=== PATIENT | male | born 1960 | race Caucasian/White ===

== ENCOUNTER 2016-07-13 11:00 | Inpatient (IN) | payer BC ==
[2016-07-13 12:23] VITALS: BMI 26.6
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
[2016-07-13] MEDS ORDERED: MAGNESIUM CITRATE 300 ML BOTTLE PO PRN (20:53)
[2016-07-13] MEDS ORDERED: MENTHOL/PHENOL 1 EACH UD MM PRN (20:53)
[2016-07-13] MEDS ORDERED: MAGNESIUM HYDROX 2400MG/30ML ORAL SUSPENSION 30 ML CUP PO PRN (20:53)
[2016-07-13] MEDS ORDERED: LOPERAMIDE HCL 2 MG CAPSULE PO PRN (20:53)
[2016-07-13] MEDS ORDERED: P-EPHED 60MG/TRIPROLIDI 2.5MG TABLET PO PRN (20:53)
[2016-07-13] MEDS ORDERED: MAG HYDROX/AL HYDROX/SIMETH 30 ML UNIT-DOSE CUP PO PRN (20:53)
[2016-07-13] MEDS ORDERED: NICOTINE POLACRILEX 4 MG GUM BC PRN (20:53)
[2016-07-13] MEDS ORDERED: chlordiazePOXIDE HCL 25 MG CAPSULE PO PRN (20:53)
[2016-07-13] MEDS ORDERED: ACETAMINOPHEN 325 MG TABLET (FP) PO PRN (20:53)
[2016-07-13] MEDS ORDERED: guaiFENesin/D-METHORPHAN HB 10 ML UNIT-DOSE CUPS PO PRN (20:53)
[2016-07-13] MEDS ORDERED: BACITRACIN 0.9 GM PACKET TP ONE (20:57)
[2016-07-13] MEDS: THIAMINE HCL 100 MG TABLET (FP) PO SCH (21:49)
[2016-07-13] MEDS: CLOTRIMAZOLE 1% CREAM 15 GM TUBE TP SCH (22:59)
[2016-07-13] MEDS: OXcarbazepine 150 MG TABLET (UD) PO SCH (22:59)
[2016-07-13] MEDS: chlordiazePOXIDE HCL 25 MG CAPSULE PO SCH (23:00)
[2016-07-14] MEDS: chlordiazePOXIDE HCL 25 MG CAPSULE PO SCH ×4 (05:37→23:02)
--- NOTE | 2016-07-14 09:57 | CONSULT ---
[facility] Psychiatric Consult - Data Date of interview: 07/14/16 Admission source: [facility] Identifying data: This is 55 years vold male with no psychiatric hospitalization history intoxicated with: Xanax and Nicotine, mmtp 120/day Substance Abuse History: - Smoking Cessation. Smoking history: Current every day smoker. Have you smoked in the past 12 months: Yes. Aproximately how many cigarettes per day: 20. Cigars Per Day: 0. Hx Chewing Tobacco Use: No. Initiated information on smoking cessation: Yes. 'Breaking Loose' booklet given : 07/13/16. - Substance & Tx. History. Hx Alcohol Use: No. Hx Substance Use: Yes. Substance Use Type: Cocaine, Opiates. Hx Substance Use Treatment: Yes. - Substances Abused. Alcohol. Route: Oral. Frequency: 3-6 times per week. Amount used: 2x 6 pack beer. Age of first use: 13. Date of Last Use: . Alprazolam (Xanax). Route: Oral. Frequency: 1-2 times per week. Amount used: 2mg. Age of first use: 13. Date of Last Use: 07/13/16. Benzodiazepine (Klonopin). Route: Oral. Frequency: Daily. Amount used: 16 mg. Age of first use: 13. Date of Last Use: 07/13/16 Medical History: DM, Seizure history, LBP, MMTP 120MG/DAY, HYGHEST DOSE-200MG/ DAY Psychiatric History: Patient reports to carry Bipolar Disorder, reports taking prior to admission: Risperdal 2mg po qhs. Elavil 25mg po qhs Physical/Sexual Abuse/Trauma History: Denies Additional Comment: Risperdal 2mg po qhs. Elavil 25mg po qhs Mental Status Exam - Mental Status Exam Alert and Oriented to: Person Cognitive Function: Fair Patient Appearance: Unkempt Mood: Sad Affect: Flat Patient Behavior: Sedated Speech Pattern: Delayed Voice Loudness: Mildly Soft/Quiet Thought Process: Circumstantial Thought Disorder: Being Controlled Hallucinations: Denies Suicidal Ideation: Denies Homicidal Ideation: Denies Insight/Judgement: Fair Sleep: Difficulty falling asleep Appetite: Weight loss Muscle strength/Tone: Mild Hypotonicity Gait/Station: Shuffling Additional Comments: Risperdal 2mg po qhs. Elavil 25mg po qhs Psychiatric Findings - Problem List ([place] 1, 2,3) (1) Methadone maintenance therapy patient Current Visit: Yes Status: Acute Comment: 120 MG VERIFICAITON PENDING (2) Nicotine dependence Current Visit: Yes Status: Acute Qualifiers: Nicotine product type: cigarettes Substance use status: in withdrawal Qualified Code(s): F17.213 - Nicotine dependence, cigarettes, with withdrawal (3) Sedative, hypnotic or anxiolytic dependence with withdrawal, uncomplicated Current Visit: Yes Status: Acute (4) Bipolar II disorder Current Visit: Yes Status: Suspected (5) Cocaine dependence Current Visit: No Status: Acute (6) Sedative dependence Current Visit: No Status: Acute (7) Benzodiazepine dependence Current Visit: No Status: Chronic (8) Bipolar 1 disorder, depressed Current Visit: No Status: Chronic (9) Opioid dependence on agonist therapy Current Visit: No Status: Chronic (10) Substance or medication-induced sleep disorder, insomnia type Current Visit: No Status: Chronic (11) Xanax use disorder, moderate Current Visit: No Status: Chronic (12) Schizoaffective disorder, bipolar type Current Visit: Yes Status: Suspected - Initial Treatment Plan Initial Treatment Plan: Risperdal 2mg po qhs. Elavil 25mg po qhs
[2016-07-14 09:58] LABS: MCH 29.3 pg (25.7-33.7); MCHC 32.4 g/dl (32.0-35.9); MEAN CELL VOLUME 90.4 fl (80-96); MEAN PLT VOLUME 9.1 fl (7.5-11.1); PLATELET COUNT 240 K/MM3 (134-434); RDW 12.8 % (11.9-15.9); WHITE BLOOD COUNT 11.1 K/mm3 (4.0-10.0)
[2016-07-14 10:43] LABS: ALBUMIN 2.9 g/dl (3.4-5.0); BILIRUBIN,TOTAL 0.2 mg/dL (0.2-1.0); CALCIUM 8.4 mg/dL (8.5-10.1); TOT PROT 6.1 g/dl (6.4-8.2)
--- NOTE | 2016-07-14 10:56 | PN ---
S CIWA - CIWA Score Nausea/Vomitin-No Nausea/No Vomiting Muscle Tremors: 4-Moderate,w/Arms Extend Anxiety: 4-Mod. Anxious/Guarded Agitation: 4-Moderately Restless Paroxysmal Sweats: 1-Minimal Palms Moist Orientation: 0-Oriented Tacttile Disturbances: 3-Moderate Itch/Numb/Burn Auditory Disturbances: 0-None Visual Disturbances: 0-None Headache: 0-None Present CIWA-Ar Total Score: 16 BHS Progress Note (SOAP) Subjective: TREMORS,CHILLS,ANXIETY, SWELLING AND BLISTERS ON FEET STATING WALKING ON THE STREETS FOR 3 WEEKS.. Objective: 07/14/16 10:57 Vital Signs 07/14/16 07/14/16 07/14/16 03:53 06:48 10:03 Temperature 98.8 F 97.6 F Pulse Rate 109 H 114 H Respiratory 18 18 18 Rate Blood Pressure 136/85 141/75 Assessment: 07/14/16 10:58 WITHDRAWAL SX Plan: CONTINUE DETOX WARM BETADINE SOLUTION FOOT SOAKS BACITRACIN OINTMENT AND WRAP FEET WITH GUAZE BANDAGE DIRECTED.
[2016-07-14] MEDS: GLIMEPIRIDE 1 MG TABLET (FP) PO SCH (11:17)
[2016-07-14] MEDS: PRENATAL VITAMINS W/ FOLIC ACID TABLET (FP) PO SCH (11:17)
[2016-07-14] MEDS: METHADONE HCL 40 MG DISPERSABLE TABLET PO SCH (11:17)
[2016-07-14] MEDS: NICOTINE 21 MG/24 HOURS TOPICAL PATCH TD SCH (11:18)
[2016-07-14] MEDS: OXcarbazepine 150 MG TABLET (UD) PO SCH (11:18)
[2016-07-14] MEDS: CLOTRIMAZOLE 1% CREAM 15 GM TUBE TP SCH ×2 (11:18→23:08)
[2016-07-14] MEDS ORDERED: PNEUMOC 13-VAL CONJ-DIP CRM/PF 0.5 ML DISP.SYRIN IM ONE (12:00)
[2016-07-14] MEDS ORDERED: PNEUMOCOCCAL 23 VACCINE 0.5 ML VIAL IM ONE (14:15)
[2016-07-14] MEDS: BACITRACIN 30 GM TUBE TOPICAL OINTMENT TP SCH ×2 (14:31→23:05)
[2016-07-14] MEDS: OXcarbazepine 300 MG TABLET (UD) PO SCH ×2 (14:31→23:09)
[2016-07-14] MEDS ORDERED: diphenhydrAMINE HCL 25 MG CAPSULE (FP) PO PRN (14:40)
--- NOTE | 2016-07-14 15:05 | EKG ---
Test Reason : Blood Pressure : / mmHG Vent. Rate : 073 BPM Atrial Rate : 073 BPM P-R Int : 156 ms QRS Dur : 096 ms QT Int : 400 ms P-R-T Axes : 065 068 041 degrees QTc Int : 440 ms NORMAL SINUS RHYTHM NORMAL ECG NO PREVIOUS ECGS AVAILABLE Confirmed by PATI ECHEVARRIA MD ([id number]) on 07/14/2016 3:05:26 PM Referred By: Confirmed By:PATI ECHEVARRIA MD
[2016-07-14] MEDS: THIAMINE HCL 100 MG TABLET (FP) PO SCH (23:02)
[2016-07-14] MEDS: AMITRIPTYLINE HCL 25 MG TABLET (FP) PO SCH (23:02)
[2016-07-14] MEDS: IBUPROFEN 400 MG TABLET (FP) PO PRN (23:03)
[2016-07-14] MEDS: risperiDONE 2 MG TABLET PO SCH (23:09)
[2016-07-15] MEDS: METHADONE HCL 40 MG DISPERSABLE TABLET PO SCH (06:20)
[2016-07-15] MEDS: chlordiazePOXIDE HCL 25 MG CAPSULE PO SCH ×3 (06:20→17:22)
[2016-07-15] MEDS: GLIMEPIRIDE 1 MG TABLET (FP) PO SCH (06:32)
[2016-07-15] MEDS: PRENATAL VITAMINS W/ FOLIC ACID TABLET (FP) PO SCH (10:29)
[2016-07-15] MEDS: BACITRACIN 30 GM TUBE TOPICAL OINTMENT TP SCH ×2 (10:30→22:31)
[2016-07-15] MEDS: NICOTINE 21 MG/24 HOURS TOPICAL PATCH TD SCH (10:31)
[2016-07-15] MEDS: CLOTRIMAZOLE 1% CREAM 15 GM TUBE TP SCH ×2 (10:31→23:25)
[2016-07-15] MEDS: OXcarbazepine 300 MG TABLET (UD) PO SCH ×2 (10:31→22:31)
--- NOTE | 2016-07-15 11:03 | PN ---
[facility] CIWA - CIWA Score Nausea/Vomitin-No Nausea/No Vomiting Muscle Tremors: 4-Moderate,w/Arms Extend Anxiety: 4-Mod. Anxious/Guarded Agitation: 4-Moderately Restless Paroxysmal Sweats: 1-Minimal Palms Moist Orientation: 0-Oriented Tacttile Disturbances: 3-Moderate Itch/Numb/Burn Auditory Disturbances: 0-None Visual Disturbances: 0-None Headache: 0-None Present CIWA-Ar Total Score: 16 S Progress Note (SOAP) Subjective: ANXIETY,TREMORS,SWEATS,FATIGUE, INTERMITTENT SLEEP Objective: 07/15/16 10:58 Vital Signs Temperature 95.0 F L 07/15/16 10:48 Pulse Rate 83 07/15/16 10:48 Respiratory Rate 20 07/15/16 10:48 Blood Pressure 81/54 07/15/16 10:48 O2 Sat by Pulse Oximetry (%) Laboratory Last Values WBC 11.1 K/mm3 (4.0-10.0) H 07/14/16 06:10 RBC 3.26 M/mm3 (4.00-5.60) L 07/14/16 06:10 Hgb 9.6 GM/dL (11.7-16.9) L 07/14/16 06:10 Hct 29.5 % (35.4-49) L 07/14/16 06:10 MCV 90.4 fl (80-96) 07/14/16 06:10 MCHC 32.4 g/dl (32.0-35.9) 07/14/16 06:10 RDW 12.8 % (11.9-15.9) 07/14/16 06:10 Plt Count 240 K/MM3 (134-434) 07/14/16 06:10 MPV 9.1 fl (7.5-11.1) D 07/14/16 06:10 Sodium 142 mmol/L (136-145) 07/14/16 06:10 Potassium 4.2 mmol/L (3.5-5.1) 07/14/16 06:10 Chloride 108 mmol/L (98-107) H 07/14/16 06:10 Carbon Dioxide 25 mmol/L (21-32) 07/14/16 06:10 Anion Gap 9 (8-16) 07/14/16 06:10 BUN 30 mg/dL (7-18) H 07/14/16 06:10 Creatinine 2.0 mg/dL (0.7-1.3) H 07/14/16 06:10 Creat Clearance w eGFR 34.74 (>60) 07/14/16 06:10 POC Glucometer 123 UNITS (()) 07/15/16 06:18 Random Glucose 105 mg/dL (74-106) 07/14/16 06:10 Calcium 8.4 mg/dL (8.5-10.1) L 07/14/16 06:10 Total Bilirubin 0.2 mg/dL (0.2-1.0) 07/14/16 06:10 AST 26 U/L (15-37) 07/14/16 06:10 ALT 33 U/L (12-78) 07/14/16 06:10 Alkaline Phosphatase 79 U/L (45-117) 07/14/16 06:10 Total Protein 6.1 g/dl (6.4-8.2) L 07/14/16 06:10 Albumin 2.9 g/dl (3.4-5.0) L 07/14/16 06:10 RPR Titer Nonreactive (NONREACTIVE) 07/14/16 06:10 LABS NOTED Assessment: 07/15/16 10:59 WITHDRAWAL SX ANEMIA, UNKNOWN ORIGIN. Plan: CONTINUE DETOX FEOSOL DIRECTED F/U WITH PMD AFTER DETOX
[2016-07-15] MEDS: FERROUS SO4 325 MG TABLET (FP) PO SCH ×2 (12:22→17:22)
[2016-07-15] MEDS: IBUPROFEN 400 MG TABLET (FP) PO PRN (13:06)
[2016-07-15 16:24] LABS: URINE APPEARANCE CLEAR; URINE BILIRUBIN NEGATIVE (NEGATIVE); URINE BLOOD NEGATIVE (NEGATIVE); URINE COLOR LTYELLOW; URINE GLUCOSE (UA) NEGATIVE (NEGATIVE); URINE KETONE NEGATIVE (NEGATIVE); URINE NITRITE NEGATIVE (NEGATIVE); URINE PROTEIN NEGATIVE (NEGATIVE); URINE UROBILINOGEN NEGATIVE E.U./dl (0.2-1.0)
[2016-07-15 16:30] LABS: URINE LEUK ESTERASE TRACE (NEGATIVE)
[2016-07-15 16:38] LABS: GRANULAR CASTS 4 /lpf; URINE MUCUS RARE; URINE RBC <1 /hpf (0-3); URINE WBC 1 /hpf (3-5)
[2016-07-15] MEDS ORDERED: BACITRACIN 0.9 GM PACKET ONE (21:16)
[2016-07-15] MEDS: risperiDONE 2 MG TABLET PO SCH (22:30)
[2016-07-15] MEDS: THIAMINE HCL 100 MG TABLET (FP) PO SCH (22:30)
[2016-07-15] MEDS: AMITRIPTYLINE HCL 25 MG TABLET (FP) PO SCH (22:30)
[2016-07-15] MEDS: diphenhydrAMINE HCL 50 MG CAPSULE PO PRN (22:31)
[2016-07-15] MEDS: chlordiazePOXIDE 5 MG CAPSULE PO SCH (23:34)
[2016-07-16] MEDS: chlordiazePOXIDE 5 MG CAPSULE PO SCH ×3 (05:49→17:35)
[2016-07-16] MEDS: METHADONE HCL 40 MG DISPERSABLE TABLET PO SCH (05:49)
[2016-07-16] MEDS: GLIMEPIRIDE 1 MG TABLET (FP) PO SCH (07:44)
[2016-07-16] MEDS: FERROUS SO4 325 MG TABLET (FP) PO SCH ×3 (07:44→17:35)
[2016-07-16] MEDS: PRENATAL VITAMINS W/ FOLIC ACID TABLET (FP) PO SCH (10:30)
[2016-07-16] MEDS: BACITRACIN 30 GM TUBE TOPICAL OINTMENT TP SCH ×2 (10:31→22:38)
[2016-07-16] MEDS: CLOTRIMAZOLE 1% CREAM 15 GM TUBE TP SCH ×2 (10:31→22:42)
[2016-07-16] MEDS: NICOTINE 21 MG/24 HOURS TOPICAL PATCH TD SCH (10:32)
[2016-07-16] MEDS: OXcarbazepine 300 MG TABLET (UD) PO SCH ×2 (10:32→22:38)
--- NOTE | 2016-07-16 11:54 | PN ---
[facility] Progress Note (SOAP) Subjective: Restlessness, anxiety, diarrhea, interrupted sleep, chills Objective: Vital Signs Temperature 96.8 F L 07/16/16 10:06 Pulse Rate 92 H 07/16/16 10:06 Respiratory Rate 18 07/16/16 10:06 Blood Pressure 101/55 07/16/16 10:06 O2 Sat by Pulse Oximetry (%) Laboratory Last Values WBC 11.1 K/mm3 (4.0-10.0) H 07/14/16 06:10 RBC 3.26 M/mm3 (4.00-5.60) L 07/14/16 06:10 Hgb 9.6 GM/dL (11.7-16.9) L 07/14/16 06:10 Hct 29.5 % (35.4-49) L 07/14/16 06:10 MCV 90.4 fl (80-96) 07/14/16 06:10 MCHC 32.4 g/dl (32.0-35.9) 07/14/16 06:10 RDW 12.8 % (11.9-15.9) 07/14/16 06:10 Plt Count 240 K/MM3 (134-434) 07/14/16 06:10 MPV 9.1 fl (7.5-11.1) D 07/14/16 06:10 Sodium 142 mmol/L (136-145) 07/14/16 06:10 Potassium 4.2 mmol/L (3.5-5.1) 07/14/16 06:10 Chloride 108 mmol/L (98-107) H 07/14/16 06:10 Carbon Dioxide 25 mmol/L (21-32) 07/14/16 06:10 Anion Gap 9 (8-16) 07/14/16 06:10 BUN 30 mg/dL (7-18) H 07/14/16 06:10 Creatinine 2.0 mg/dL (0.7-1.3) H 07/14/16 06:10 Creat Clearance w eGFR 34.74 (>60) 07/14/16 06:10 POC Glucometer 96 UNITS (()) 07/16/16 05:48 Random Glucose 105 mg/dL (74-106) 07/14/16 06:10 Calcium 8.4 mg/dL (8.5-10.1) L 07/14/16 06:10 Total Bilirubin 0.2 mg/dL (0.2-1.0) 07/14/16 06:10 AST 26 U/L (15-37) 07/14/16 06:10 ALT 33 U/L (12-78) 07/14/16 06:10 Alkaline Phosphatase 79 U/L (45-117) 07/14/16 06:10 Total Protein 6.1 g/dl (6.4-8.2) L 07/14/16 06:10 Albumin 2.9 g/dl (3.4-5.0) L 07/14/16 06:10 Urine Color Ltyellow 07/15/16 10:32 Urine Appearance Clear 07/15/16 10:32 Urine pH 5.0 (5.0-8.0) 07/15/16 10:32 Ur Specific [place] 1.013 (1.001-1.035) 07/15/16 10:32 Urine Protein Negative (NEGATIVE) 07/15/16 10:32 Urine Glucose (UA) Negative (NEGATIVE) 07/15/16 10:32 Urine Ketones Negative (NEGATIVE) 07/15/16 10:32 Urine Blood Negative (NEGATIVE) 07/15/16 10:32 Urine Nitrite Negative (NEGATIVE) 07/15/16 10:32 Urine Bilirubin Negative (NEGATIVE) 07/15/16 10:32 Urine Urobilinogen Negative E.U./dl (0.2-1.0) 07/15/16 10:32 Ur Leukocyte Esterase Trace (NEGATIVE) H 07/15/16 10:32 Urine RBC <1 /hpf (0-3) 07/15/16 10:32 Urine WBC 1 /hpf (3-5) 07/15/16 10:32 Granular Casts 4 /lpf 07/15/16 10:32 Urine Mucus Rare 07/15/16 10:32 RPR Titer Nonreactive (NONREACTIVE) 07/14/16 06:10 Labs noted 07/16/16 11:52 Assessment: Withdrawal Symptoms Plan: Continue Detox
[2016-07-16] MEDS: THIAMINE HCL 100 MG TABLET (FP) PO SCH (22:38)
[2016-07-16] MEDS: chlordiazePOXIDE HCL 10 MG CAPSULE PO SCH (22:38)
[2016-07-16] MEDS: risperiDONE 2 MG TABLET PO SCH (22:39)
[2016-07-16] MEDS: AMITRIPTYLINE HCL 25 MG TABLET (FP) PO SCH (22:41)
[2016-07-16] MEDS: diphenhydrAMINE HCL 50 MG CAPSULE PO PRN (22:42)
[2016-07-17] MEDS: diphenhydrAMINE HCL 50 MG CAPSULE PO PRN (01:40)
[2016-07-17] MEDS: chlordiazePOXIDE HCL 10 MG CAPSULE PO SCH ×2 (05:58→10:23)
[2016-07-17] MEDS: METHADONE HCL 40 MG DISPERSABLE TABLET PO SCH (05:58)
[2016-07-17] MEDS: GLIMEPIRIDE 1 MG TABLET (FP) PO SCH (06:01)
[2016-07-17 07:08] VITALS: TEMP 96.5
[2016-07-17] MEDS: FERROUS SO4 325 MG TABLET (FP) PO SCH (07:14)
[2016-07-17] MEDS: PRENATAL VITAMINS W/ FOLIC ACID TABLET (FP) PO SCH (10:22)
[2016-07-17] MEDS: OXcarbazepine 300 MG TABLET (UD) PO SCH (10:23)
[2016-07-17] MEDS: BACITRACIN 30 GM TUBE TOPICAL OINTMENT TP SCH (10:24)
[2016-07-17] MEDS: NICOTINE 21 MG/24 HOURS TOPICAL PATCH TD SCH (10:24)
[2016-07-17] MEDS: CLOTRIMAZOLE 1% CREAM 15 GM TUBE TP SCH (10:25)
[2016-07-17 11:03] VITALS: BP 108/66; PULSE 114
--- NOTE | 2016-07-17 13:20 | DS ---
[facility] Detox Discharge Summary Admission Date: 07/13/16 Discharge Date: 07/17/16 - History Present History: Alcohol Dependence, Sedative Dependence Pertinent Past History: HTN Seizure disorder DMT2 Hepatitis C Noted with MARILYN: continue increased water intake and follow up with PCP post discharge - Physical Exam Results Vital Signs: Vital Signs Temperature 96.5 F L 07/17/16 07:08 Pulse Rate 114 H 07/17/16 11:02 Respiratory Rate 20 07/17/16 11:02 Blood Pressure 108/66 07/17/16 11:02 O2 Sat by Pulse Oximetry (%) Pertinent Admission Physical Exam Findings: Withdrawal symptoms Laboratory Tests 07/14/16 07/14/16 07/14/16 05:37 06:10 06:10 WBC 11.1 H RBC 3.26 L Hgb 9.6 L Hct 29.5 L MCV 90.4 MCHC 32.4 RDW 12.8 Plt Count 240 MPV 9.1 D Sodium 142 Potassium 4.2 Chloride 108 H Carbon Dioxide 25 Anion Gap 9 BUN 30 H Creatinine 2.0 H Creat Clearance w eGFR 34.74 POC Glucometer 86 Random Glucose 105 Calcium 8.4 L Total Bilirubin 0.2 AST 26 ALT 33 Alkaline Phosphatase 79 Total Protein 6.1 L Albumin 2.9 L Urine Color Urine Appearance Urine pH Ur Specific [place] Urine Protein Urine Glucose (UA) Urine Ketones Urine Blood Urine Nitrite Urine Bilirubin Urine Urobilinogen Ur Leukocyte Esterase Urine RBC Urine WBC Granular Casts Urine Mucus RPR Titer 07/14/16 07/15/16 07/15/16 06:10 06:18 10:32 WBC RBC Hgb Hct MCV MCHC RDW Plt Count MPV Sodium Potassium Chloride Carbon Dioxide Anion Gap BUN Creatinine Creat Clearance w eGFR POC Glucometer 123 Random Glucose Calcium Total Bilirubin AST ALT Alkaline Phosphatase Total Protein Albumin Urine Color Ltyellow Urine Appearance Clear Urine pH 5.0 Ur Specific [place] 1.013 Urine Protein Negative Urine Glucose (UA) Negative Urine Ketones Negative Urine Blood Negative Urine Nitrite Negative Urine Bilirubin Negative Urine Urobilinogen Negative Ur Leukocyte Esterase Trace H Urine RBC <1 Urine WBC 1 Granular Casts 4 Urine Mucus Rare RPR Titer Nonreactive 07/16/16 07/17/16 05:48 06:51 WBC RBC Hgb Hct MCV MCHC RDW Plt Count MPV Sodium Potassium Chloride Carbon Dioxide Anion Gap BUN Creatinine Creat Clearance w eGFR POC Glucometer 96 131 Random Glucose Calcium Total Bilirubin AST ALT Alkaline Phosphatase Total Protein Albumin Urine Color Urine Appearance Urine pH Ur Specific [place] Urine Protein Urine Glucose (UA) Urine Ketones Urine Blood Urine Nitrite Urine Bilirubin Urine Urobilinogen Ur Leukocyte Esterase Urine RBC Urine WBC Granular Casts Urine Mucus RPR Titer Labs noted - Treatment Hospital Course: Detox Protocol Followed, Detoxed Safely, Responded well, Discharged Condition Good - Medication Discharge Medications: Ambulatory Orders Clotrimazole [Clotrimazole AF] 30 gm TP BID 01/28/16 Glimepiride [Glimepiride -] 1 mg PO ACBK #30 tablet 02/01/16 Amitriptyline HCl [Elavil -] 25 mg PO HS #30 tablet 02/29/16 Amlodipine Besylate [Norvasc -] 10 mg PO DAILY #30 tablet 02/29/16 Clobetasol Propionate/Emoll [Clobetasol Emollient 0.05% Crm] 30 gm TP BID #1 cream..g. 02/29/16 Lisinopril [Prinivil] 5 mg PO DAILY #30 tablet 02/29/16 Oxcarbazepine 150 mg PO BID #60 tablet 02/29/16 Risperidone [Risperdal -] 2 mg PO HS 07/13/16 Amitriptyline HCl [Elavil -] 50 mg PO HS #30 tablet 07/14/16 Risperidone [Risperdal -] 2 mg PO HS #30 tablet 07/14/16 - Diagnosis (1) Nicotine dependence Status: Chronic Qualifiers: Nicotine product type: cigarettes Substance use status: in withdrawal Qualified Code(s): F17.213 - Nicotine dependence, cigarettes, with withdrawal (2) Sedative, hypnotic or anxiolytic dependence with withdrawal, uncomplicated Status: Acute (3) Seizure Status: Chronic (4) Hepatitis C antibody test positive Status: Chronic (5) Hypertension Status: Chronic Qualifiers: Hypertension type: essential hypertension Qualified Code(s): I10 - Essential (primary) hypertension (6) Bipolar II disorder Status: Chronic (7) Diabetes mellitus type II, controlled Status: Chronic Qualifiers: Diabetes mellitus complication status: with skin complications Diabetes mellitus complication detail: with dermatitis 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
== END 2016-07-17 11:15 | disposition home or self-care (01) | DRG 773 ==
LOC: YASAS 11:00 → Y3N 20:10
PROVIDERS: ADMIT Internal Medicine; ATTEND Internal Medicine
PROC: HZ2ZZZZ Detoxification Services for Substance Abuse Treatment (ICD-10-PCS; principal; 2016-07-17)
DX: F11.20 Opioid dependence, uncomplicated (principal); F13.230 Sedative, hypnotic or anxiolytic dependence with withdrawal, uncomplicated; F14.20 Cocaine dependence, uncomplicated; F17.213 Nicotine dependence, cigarettes, with withdrawal; F19.280 Other psychoactive substance dependence with psychoactive substance-induced anxiety disorder; F25.0 Schizoaffective disorder, bipolar type; F31.81 Bipolar II disorder; F31.89 Other bipolar disorder; G40.909 Epilepsy, unspecified, not intractable, without status epilepticus; E11.620 Type 2 diabetes mellitus with diabetic dermatitis; Z79.84 Long term (current) use of oral hypoglycemic drugs; B18.2 Chronic viral hepatitis C; I10 Essential (primary) hypertension; M54.5 Low back pain; T25.122A Burn of first degree of left foot, initial encounter; T25.121A Burn of first degree of right foot, initial encounter; X58.XXXA Exposure to other specified factors, initial encounter; Y92.480 Sidewalk as the place of occurrence of the external cause
CPT/HCPCS: 36415; 80053; 81003; 81015; 85027; 86593; 90732; 93005; 93010; G0009

== ENCOUNTER 2016-07-13 13:23 | Emergency (ER) | payer BC ==
[2016-07-13 13:36] VITALS: TEMP 97.5; BMI 27.3
[2016-07-13 15:36] LABS: BASOPHIL 0.4 % (0-2.0); EOSINOPHIL 6.7 % (0-4.5); MCH 29.7 pg (25.7-33.7); MCHC 33.5 g/dl (32.0-35.9); MEAN CELL VOLUME 88.6 fl (80-96); MEAN PLT VOLUME 7.9 fl (7.5-11.1); NEUTROPHILS 57.1 % (42.8-82.8); PLATELET COUNT 213 K/MM3 (134-434); RDW 12.8 % (11.9-15.9); WHITE BLOOD COUNT 8.9 K/mm3 (4.0-10.0)
[2016-07-13 16:07] LABS: ALBUMIN 2.7 g/dl (3.4-5.0); BILIRUBIN,TOTAL 0.2 mg/dL (0.2-1.0); CALCIUM 8.2 mg/dL (8.5-10.1); TOT PROT 5.7 g/dl (6.4-8.2)
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
[2016-07-13] MEDS ORDERED: SODIUM CHLORIDE 0.9% 1000 ML INFUS.BAG IV ONE (16:40)
[2016-07-13 17:57] VITALS: BP 107/66; PULSE 81
--- NOTE | 2016-07-13 18:10 | PDOC ---
*Physical Exam - Vital Signs Last Vital Signs Temp Pulse Resp BP Pulse Ox 97.5 F L 81 20 107/66 99 07/13/16 13:34 07/13/16 17:57 07/13/16 17:57 07/13/16 17:57 07/13/16 17:57 ED Treatment Course - LABORATORY CBC & Chemistry Diagram: 07/13/16 15:25 07/13/16 15:25 - ADDITIONAL ORDERS Additional order review: Laboratory Results 07/13/16 07/13/16 15:25 14:50 Sodium 144 Potassium 4.3 Chloride 109 H Carbon Dioxide 28 Anion Gap 7 L BUN 32 H D Creatinine 2.0 H D Creat Clearance w eGFR 34.74 POC Glucometer 127.90672 Random Glucose 101 D Calcium 8.2 L Total Bilirubin 0.2 D AST 22 D ALT 29 D Alkaline Phosphatase 72 D Total Protein 5.7 L Albumin 2.7 L 07/13/16 07/13/16 15:25 14:50 RBC 3.18 L D MCV 88.6 MCHC 33.5 RDW 12.8 D MPV 7.9 D Neutrophils % 57.1 Lymphocytes % 26.5 Monocytes % 9.3 Eosinophils % 6.7 H Basophils % 0.4 POC Glucometer 127.08565 Medical Decision Making - Medical Decision Making 07/13/16 18:09 Pt's BP improved and stable. Pt ambulatory without difficulty. Will d/c to detox. *DC/Admit/Observation/Transfer Diagnosis at time of Disposition: Methadone maintenance therapy patient - Discharge Dispostion Disposition: I.P. ALCOHOL/SUBS ABUSE REHAB Condition at time of disposition: Improved Admit: No - Patient Instructions Printed Discharge Instructions: How to Monitor Your Blood Pressure at Home, Methadone Additional Instructions: Please go to detox. If you notice any chest pain, shortness of breath, severe lightheadedness, please return to the ER.
== END 2016-07-13 18:16 | disposition other institution (70) ==
LOC: JER 13:23
DX: I95.89 Other hypotension (principal); I10 Essential (primary) hypertension; E11.9 Type 2 diabetes mellitus without complications; Z79.84 Long term (current) use of oral hypoglycemic drugs; F11.20 Opioid dependence, uncomplicated; F13.10 Sedative, hypnotic or anxiolytic abuse, uncomplicated
CPT/HCPCS: 36415; 80053; 85025; 99283-25